=== PATIENT | female | born 1995 | race Two or more races ===

== ENCOUNTER 2018-11-27 21:16 | Emergency (ER) | payer OTHER ==
[~2018-11-27] VITALS: Ht 152.4 cm; Wt 44.5 kg
[2018-11-27 21:30] VITALS: BP 139/48
[2018-11-28] MEDS ORDERED: HYDROcodone-ACET 10/325MG TAB PO ONE (01:30)
[2018-11-28] MEDS ORDERED: BACLOFEN 10 MG TAB PO ONE (01:30)
== END 2018-11-28 02:03 | disposition home or self-care (01) ==
LOC: ER 21:18
DX: S40.212A Abrasion of left shoulder, initial encounter (principal); M54.2 Cervicalgia; M54.9 Dorsalgia, unspecified; V49.9XXA Car occupant (driver) (passenger) injured in unspecified traffic accident, initial encounter; Y93.89 Activity, other specified; Y99.8 Other external cause status; Y92.89 Other specified places as the place of occurrence of the external cause
CPT/HCPCS: 73030; 74176